=== PATIENT | male | born 2000 | race Caucasian/White ===

== ENCOUNTER 2022-01-12 13:12 | Emergency (ER) | payer OTHER, SELFPAY ==
[2022-01-12 13:24] VITALS: BP 146/83; PULSE 80; RESP 19; TEMP 36.9; O2SAT 98; BMI 16.7
--- NOTE | 2022-01-12 14:35 | DI.RAD.S_ITS ---
PROCEDURE: XR KUB INDICATIONS: constipation, r/o bowel obstruction TECHNIQUE: One view of the abdomen acquired. COMPARISON: None. FINDINGS: Surgical changes and devices: None. Bowel: Bowel gas pattern is normal. Soft tissues: No suspicious abdominal calcifications. Visualized solid organ contours appear normal in size. Bones: No suspicious bony lesions. IMPRESSION: No acute intra-abdominal findings. No findings to suggest constipation or bowel obstruction. Dictated by: Farheen Duncan M.D. on 01/12/2022 at 14:55 Approved by: Farheen Duncan M.D. on 01/12/2022 at 14:55
--- NOTE | 2022-01-12 14:36 | ED_ITS ---
HPI - Abdominal Pain <SHELDON Varela - Last Filed: 01/12/22 17:51> General Chief Complaint: Abdominal Pain Stated Complaint: constipated x 1 week Time Seen by Provider: 01/12/22 14:24 Source: patient Mode of arrival: Family Vehicle History of Present Illness HPI narrative: This is a 21-year-old presents to the emergency department complaining of a long history of constipation alternating with diarrhea and primarily constipation with concern for bowel obstruction today. He states that it has been approximately six days since he has had a normal bowel movement. Last evening at 2200 hours he consumed 300 mL of magnesium citrate, states that he had some liquid stool this morning but did not have any bowel movement like he anticipated. Patient states he has used MiraLax in the past but not recently. He denies nausea vomiting, fever, chills, significant or exquisite abdominal pain, rectal pain, blood in his urine or his stool. He states that he has been hydrated, denies taking any medications other than the magnesium for his constipation last night. He endorses of situation yesterday where he was voiding, states that he could not stop his void and then he had urinary urgency for while afterwards without being able avoid because he had emptied his bladder already. He denies any rectal pain, exposure to any STDs, blood in his stool, rectal pain with bowel movements, rectal bleeding, prostate issues, dysuria, flank pain, penile pain, chills or fever. Related Data Previous Rx's Medication Instructions Recorded bisacodyl 10 mg rectal suppository 10 mg PA DAILY PRN constipation 01/12/22 #12 ea polyethylene glycol 3350 17 17 g PO DAILY PRN constipation 01/12/22 gram/dose oral powder (Miralax) #238 grams Allergies Allergy/AdvReac Type Severity Reaction Status Date / Time No Known Drug Allergies Allergy Verified 01/12/22 13:24 Review of Systems <SHELDON Varela - Last Filed: 01/12/22 17:51> Review of Systems Narrative: General: denies fever, chills Head/Neck: denies headache, neck pain Eyes: denies visual changes, eye pain Cardio: denies chest pain, palpitations Respiratory: denies shortness of breath, cough GI: denies abdominal pain, nausea, vomiting, or diarrhea, endorses hard BM four days ago with liquid BM yesterday after he took MiraLax : denies dysuria, hematuria or flank pain MSK: denies new joint pain, muscle weakness or swelling Skin: denies rash, itching or wound Neuro: denies numbness, tingling, dizziness Patient History <SHELDON Varela - Last Filed: 01/12/22 17:51> Social History Smoking Status: Never smoker Smoking Status: Never smoker alcohol intake frequency: holidays/special occasions only Substance Use Type: marijuana Exam <SHELDON Varela - Last Filed: 01/12/22 17:51> Narrative Exam Narrative: Independently reviewed vitals signs and nursing notes. General: cooperative, comfortable, in no acute distress, well groomed Head: atraumatic, symmetrical facial expressions Neck: supple Eyes: equal round and reactive, EOMI, conjunctiva normal Nose: nares patent, no rhinorrhea Mouth/Throat: moist mucus membranes Cardiovascular: regular rate and rhythm, no peripheral edema, warm extremities Respiratory: normal effort, able to speak in complete sentences, no audible wheezing, stridor, or rales. No retractions or tachypnea. GI: abdomen soft, flat, nontender to palpation, nondistended, no masses, no exquisite tenderness with exam, without guarding or rebound. MSK: moves all extremities, neurovascularly intact, no weakness, normal tone Skin: brisk capillary refill, no rash, no erythema Neuro: normal speech and cognition, A&O x3 Psych: mental status is grossly normal, congruent mood, normal affect, pleasant and cooperative Initial Vital Signs Initial Vital Signs: Vital Signs Temperature 98.5 F 01/12/22 13:24 Pulse Rate 80 01/12/22 13:24 Respiratory Rate 19 01/12/22 13:24 Blood Pressure 146/83 H 01/12/22 13:24 Pulse Oximetry 98 01/12/22 13:24 Oxygen Delivery Method 01/12/22 13:24 <Patricia Moeller DO - Last Filed: 01/14/22 12:29> Initial Vital Signs Initial Vital Signs: Vital Signs Temperature 98.5 F 01/12/22 13:24 Pulse Rate 80 01/12/22 13:24 Respiratory Rate 19 01/12/22 13:24 Blood Pressure 146/83 H 01/12/22 13:24 Pulse Oximetry 98 01/12/22 13:24 Oxygen Delivery Method 01/12/22 13:24 Course <SHELDON Varela - Last Filed: 01/12/22 17:51> Orders Ordered: Discontinued Medications Bisacodyl (Bisacodyl 10 Mg Supp) 10 mg PA NOW ONE Stop: 01/12/22 14:36 Last Admin: 01/12/22 15:25 Dose: Not Given Documented By: CTS Magnesium Citrate (Magnesium Citrate 300 Ml Solution) 300 ml PO NOW ONE Stop: 01/12/22 14:36 Last Admin: 01/12/22 15:08 Dose: Not Given Documented By: RLS Metoclopramide HCl (Metoclopramide Hcl 10 Mg Tablet) 10 mg PO NOW ONE Stop: 01/12/22 14:38 Last Admin: 01/12/22 15:25 Dose: Not Given Documented By: CTS Vital Signs Vital signs: Vital Signs - 8 hr 01/12/22 13:24 01/12/22 15:59 Temperature 98.5 F Pulse Rate 80 80 Respiratory Rate 19 18 Blood Pressure 146/83 H 140/80 Pulse Oximetry 98 98 Oxygen Delivery Method Room Air <Patricia Moeller DO - Last Filed: 01/14/22 12:29> Orders Ordered: Discontinued Medications Bisacodyl (Bisacodyl 10 Mg Supp) 10 mg PA NOW ONE Stop: 01/12/22 14:36 Last Admin: 01/12/22 15:25 Dose: Not Given Documented By: CTS Magnesium Citrate (Magnesium Citrate 300 Ml Solution) 300 ml PO NOW ONE Stop: 01/12/22 14:36 Last Admin: 01/12/22 15:08 Dose: Not Given Documented By: RLS Metoclopramide HCl (Metoclopramide Hcl 10 Mg Tablet) 10 mg PO NOW ONE Stop: 01/12/22 14:38 Last Admin: 01/12/22 15:25 Dose: Not Given Documented By: CTS Vital Signs Vital signs: Vital Signs - 8 hr 01/12/22 13:24 01/12/22 15:59 Temperature 98.5 F Pulse Rate 80 80 Respiratory Rate 19 18 Blood Pressure 146/83 H 140/80 Pulse Oximetry 98 98 Oxygen Delivery Method Room Air MDM - Abdominal Pain <Patience Tony Wattsbhavana, [facility] - Last Filed: 01/12/22 17:51> Lab Data Labs: Lab Results 01/12/22 Range/Units 15:20 Urine Color Yellow Urine Appearance Clear Urine pH 6.5 (4.5-8.0) Ur Specific Barnard <=1.005 (1.000-1.035) Urine Protein Negative (Negative) Urine Glucose (UA) Negative (Negative) g/dL Urine Ketones Negative (NEGATIVE) Urine Occult Blood Negative (Negative) Urine Nitrate Negative (Negative) Urine Bilirubin Negative (NEGATIVE) Urine Urobilinogen 0.2 (0.2) E.U./dL Ur Leukocyte Esterase Negative (NEGATIVE) Urine RBC None seen (0-5/HPF) Urine WBC None seen (0-5/HPF) Ur Squamous Epith Cells None seen (0-5/HPF) Urine Bacteria None seen (None) Ur Culture Indicated? Cult not indicated Imaging Data Abdominal x-ray: Radiologist's Impression: PROCEDURE:? XR KUB ? INDICATIONS:? constipation, r/o bowel obstruction ? TECHNIQUE:? One view of the abdomen acquired.? ? COMPARISON:? None. ? FINDINGS:? ? Surgical changes and devices:? None.? ? Bowel:? Bowel gas pattern is normal.? ? Soft tissues:? No suspicious abdominal calcifications.? Visualized solid organ contours appear normal in size.? ? Bones:? No suspicious bony lesions.? ? IMPRESSION:? No acute intra-abdominal findings.? No findings to suggest constipation or bowel obstruction.? ? ? Dictated by: Farheen Duncan M.D. on 01/12/2022 at 14:55 ? ? Approved by: Farheen Duncan M.D. on 01/12/2022 at 14:55 ? [facility] Narrative Medical decision making narrative: This is a 21-year-old male who presents to the emergency department with concern about constipation over the last six days with a hard bowel movement four days ago and only liquid stool after he took magnesium citrate last night. Patient endorses a history of constipation and diarrhea which alternates, denies any formal diagnosis of IBS but states that he has dried multiple stool softeners and usually experiences periods of constipation while he is traveling. He has just been traveling and moved here two days ago. He endorses some anxiety and has been under some stress. His x-ray KUB shows no acute intra-abdominal findings, no findings his just constipation or bowel obstruction, bowel gas pattern is normal. Patient endorsed a episode of voiding yesterday which was abnormal but he tried to stop flow midstream, this is likely what his problem was and he was unable to. His UA was negative for abnormality, microscopy was negative for white blood cells, red blood cells. Encouraged patient to stay hydrated, use MiraLax for more regular control of his bowels and use once a day and progressed to twice a day until he has a regular bowel movement. He states his baseline is 1-3 stools per week. Patient is nontoxic appearing, does not have any guarding, rebound, tenderness over his right lower quadrant with palpation, or any positive appendicitis signs. No peritoneal signs on abdominal exam. Patient remains p.o. tolerant. Serial abdominal exam without increase in abdominal pain. Given history and exam, low suspicion for acute abdominal process, such as acute cholecystitis, pancreatitis, perforated viscus, atypical appendicitis, colitis, diverticulitis or torsion. Extensive conversation about ER return precautions and need for close follow-up. Patient is appropriate and amenable to discharge home. Vital signs are stable on repeat examination is unremarkable. Patient has been informed of results. Patient has been given strict return to ER precautions for any new or worsening symptoms. Patient understands to follow up closely with outpatient providers as instructed. Patient understands plan and agrees to discharge home. All questions and concerns answered at this time. <Patricia Moeller, DO - Last Filed: 01/14/22 12:29> Lab Data Labs: Lab Results 01/12/22 Range/Units 15:20 Urine Color Yellow Urine Appearance Clear Urine pH 6.5 (4.5-8.0) Ur Specific Barnard <=1.005 (1.000-1.035) Urine Protein Negative (Negative) Urine Glucose (UA) Negative (Negative) g/dL Urine Ketones Negative (NEGATIVE) Urine Occult Blood Negative (Negative) Urine Nitrate Negative (Negative) Urine Bilirubin Negative (NEGATIVE) Urine Urobilinogen 0.2 (0.2) E.U./dL Ur Leukocyte Esterase Negative (NEGATIVE) Urine RBC None seen (0-5/HPF) Urine WBC None seen (0-5/HPF) Ur Squamous Epith Cells None seen (0-5/HPF) Urine Bacteria None seen (None) Ur Culture Indicated? Cult not indicated Discharge Plan Departure Patient Disposition: Home Clinical Impression: IBS (irritable bowel syndrome) Qualifiers: Irritable bowel syndrome type: with both diarrhea and constipation Qualified Code(s): K58.2 - Mixed irritable bowel syndrome Instructions: Irritable Bowel Syndrome, DI for Constipation Activity Restrictions/Additional Instructions: *You have been diagnosed with history of constipation alternating with diarrhea. This is most likely irritable bowel syndrome which is very reactive with your personal feeling. If you are stressed or traveling, feeling anxious, a lot of times your bowels will react. There is a mind- bowel connection and practicing mindfulness, meditation, and relaxation strategies for coping can help your bowels return to normal. Also, MiraLax can be helpful for regular use. It helps draws water into your colon, helping your bowels move more easily. Please stay hydrated like you are, your doing everything right. You may use suppositories to help soften stool in the rectal vault if it is down that far, or MiraLax to help move stool through which is slow moving. You may always get another magnesium citrate if you feel like you have a lot of stool in your bowels. It appears that your mostly empty today except for a small amount in the lower colon which should come out in the next 1-2 days. Thank you for your patient today, sorry for how long your visit was, you may take MiraLax up to 2 times daily until you have regular bowel movements, this is what I would encourage you to do until that is unsuccessful, then you can add other agents until you have a bowel movement. *What to do: *Please continue to take your regular medications as directed. [ x] New medication prescriptions sent to your pharmacy: [ [facility]] [ ] New medication written as a paper prescription [ ] No new medications given *Please follow up with your primary care provider in 2-3 days, call for an appointment. Let them know you were seen in the Emergency Department and that we asked that you be seen for follow-up. We will electronically transmit a record of today's note if your PCP is in our system *If you do not have a primary care provider please contact [phone] to establish care with one of the [facility] primary care providers. *Return to Emergency Department if you should have any new, worsening or concerning symptoms, such as [fever greater than 101F, chills, worsening pain, persistent vomiting or other bothersome symptoms] Prescriptions: New polyethylene glycol 3350 [Miralax] 17 gram/dose powder 17 g PO DAILY PRN (Reason: constipation) Qty: 238 0RF bisacodyl 10 mg suppository 10 mg PA DAILY PRN (Reason: constipation) Qty: 12 0RF Visit Report Forms: Patient Portal/API <Patricia Moeller DO - Last Filed: 01/14/22 12:29> Cosign ED Attending Cosignature Attestation: I was immediately available in the department for consultation. Documentation has been reviewed.
[2022-01-12 15:59] VITALS: BP 140/80; PULSE 80; RESP 18; O2SAT 98
[2022-01-12 16:06] LABS: Appearance Urine UA CLEAR; Bilirubin Urine UA NEGATIVE (NEGATIVE); Color Urine UA YELLOW; Glucose Urine UA NEGATIVE (Negative); Ketones Urine UA NEGATIVE (NEGATIVE); Leukocyte Esterase Urine UA NEGATIVE (NEGATIVE); Nitrite Urine UA NEGATIVE (Negative); Occult Blood Urine UA NEGATIVE (Negative); Protein Urine UA NEGATIVE (Negative); Specific Gravity Urine UA <=1.005 (1.000-1.035); Urobilinogen Urine UA 0.2 E.U./dL (0.2); pH Urine UA 6.5 (4.5-8.0)
[2022-01-12 16:15] LABS: Bacteria Urine None Seen; Culture Indicated Urine Cult Not Indicated; RBC Urine None Seen (0-5/HPF); Squamous Epithelial Cell Urine None Seen (0-5/HPF); WBC Urine None Seen (0-5/HPF)
== END 2022-01-12 16:12 | disposition home or self-care (01) ==
PROVIDERS: Emergency Provider Nurse Practitioner Critical Care Medicine
DX: K58.2 Mixed irritable bowel syndrome (principal)
CPT/HCPCS: 74018; 81001; 99282; 99283